=== PATIENT | female | born 1990 | race Caucasian/White ===

== ENCOUNTER 2017-03-01 02:34 | Observation (INO) | payer BC ==
[2017-03-01 03:09] VITALS: BMI 23.3
--- NOTE | 2017-03-01 03:11 | ED PDOC ---
"Arrival/HPI - General Historian: Patient - History of Present Illness Time/Duration: < week Quality: Fullness Severity Level: 6 <Ross Terrazas - Last Filed: 03/01/17 07:15> <Vitro Omalley - Last Filed: 03/01/17 08:39> - General Chief Complaint: Abdominal Pain Time Seen by Provider: 03/01/17 02:36 - History of Present Illness Narrative History of Present Illness (Text): 03/01/17 03:09 26 year old female with past medical history of PCOS presents to [facility] ED complaining of worsening abdominal pain of 4 days. Patient reports the abdominal pain started soon after her menses started on the same day. Patient states that the abdominal pain is worse than her usual menstrual cramping. It is located in the epigastric region that radiates down to her lower abdominal quadrants. Patient also reports of having 1 episode of NBNB vomiting and 1 episode of diarrhea. Patient tried taking OTC pain medications, but they did not alleviate her pain. She has decreased of appetite. Denies having headache, fever, chills, shortness of breath, chest pain, urinary or symptoms. (Ross Terrazas ) Past Medical History - Provider Review Nursing Documentation Reviewed: Yes <Ross Terrazas - Last Filed: 03/01/17 07:15> Family/Social History - Physician Review Nursing Documentation Reviewed: Yes Family/Social History: Hypertension <Ross Terrazas - Last Filed: 03/01/17 07:15> Allergies/Home Meds <Ross Terrazas - Last Filed: 03/01/17 07:15> <Vitor Omalley - Last Filed: 03/01/17 08:39> Allergies/Adverse Reactions: Allergies No Known Allergies Allergy (Verified 03/01/17 03:09) Home Medications: Home Meds Medication Instructions Recorded Confirmed No Known Home Med 03/01/17 03/01/17 Review of Systems - Physician Review All systems were reviewed & negative as marked: Yes - Review of Systems Constitutional: Normal. absent: Fatigue, Fevers Eyes: Normal. absent: Vision Changes ENT: Normal. absent: Rhinorrhea Respiratory: Normal. absent: SOB, Cough Cardiovascular: Normal. absent: Chest Pain, Syncope Gastrointestinal: Abdominal Pain, Diarrhea, Nausea, Vomiting, Appetite Changes Genitourinary Female: absent: Dysuria, Hematuria, Urine Output Changes, Vaginal Discharge Musculoskeletal: absent: Back Pain Skin: Normal. absent: Rash, Pruritis Neurological: Normal. absent: Headache, Dizziness Endocrine: Normal. absent: Diaphoresis, Polyuria Hemo/Lymphatic: Normal Psychiatric: Normal. absent: Anxiety, Depression <Ross Terrazas - Last Filed: 03/01/17 07:15> Physical Exam Vital Signs Reviewed: Yes Temperature: Afebrile Blood Pressure: Normal Pulse: Tachycardic Respiratory Rate: Normal Appearance: Positive for: Non-Toxic Pain Distress: Moderate Mental Status: Positive for: Alert and Oriented X 3 - Systems Exam Head: Present: Atraumatic, Normocephalic Pupils: Present: PERRL Extroacular Muscles: Present: EOMI Conjunctiva: Present: Normal Mouth: Present: Moist Mucous Membranes Neck: Present: Normal Range of Motion Respiratory/Chest: Present: Clear to Auscultation, Good Air Exchange. No: Respiratory Distress, Accessory Muscle Use Cardiovascular: Present: Regular Rate and Rhythm, Normal S1, S2. No: Murmurs Abdomen: Present: Tenderness (diffused abdominal tenderness, more in the epigastric and bilateral lower abdomen) Upper Extremity: Present: Normal Inspection, Neurovascularly Intact. No: Cyanosis, Edema Lower Extremity: Present: Normal Inspection, Neurovascularly Intact. No: Edema Neurological: Present: GCS=15, CN II-XII Intact, Speech Normal Skin: Present: Warm, Dry, Normal Color. No: Rashes Psychiatric: Present: Alert, Oriented x 3, Normal Insight, Normal Concentration <Ross Terrazas - Last Filed: 03/01/17 07:15> Vital Signs Temp Pulse Resp BP Pulse Ox 03/01/17 03:22 98.4 F 91 H 18 104/62 99 Medical Decision Making Re-evaluation Time: 06:30 (Patient's pain improved but feeling dizzy from pain medication) Reassessment Condition: Improving,but remains with symptoms <Ross Terrazas - Last Filed: 03/01/17 07:15> - Lab Interpretations I have reviewed the lab results: Yes - RAD Interpretation Clinic Physician Director: Radiologist <Vitor Omalley - Last Filed: 03/01/17 08:39> ED Course and Treatment: 03/01/17 03:29 -CBC, CMP -Pelvis u/s -CT abdomen -Morphine, dilaudid -UA 03/01/17 07:17 Spoken to patient and mother of imaging findings. Patient agreed to admission to hospital and OBGYN evaluation and further treatments. (Ross Trerazas) Impression: In agreement with resident note, which includes further HPI details. Patient was seen and evaluated with resident, came up with plan and treatment together. Pt, whose past medical history includes PCOS, presented for worsening abdominal pain for 4 days after her menses started. Plan: -- CT Abdomen and Pelvis -- Transvaginal US -- Labs, amylase, lipase -- Urinalysis, urine cultures -- IV fluids -- Zofran -- Pepcid -- Morphine -- Reassess and disposition Progress Notes: (Vitor Omalley) - RAD Interpretation Narrative RAD Interpretations (Text): 03/01/17 04:55 EXAM: US Pelvis Complete CLINICAL HISTORY: 26 years old, female; Pain; Pelvic pain; Additional info: H/o pcos - R/O ovarian torsion TECHNIQUE: Real-time pelvic ultrasound (complete) with image documentation. EXAM DATE/TIME: 03/01/2017 3:20 AM COMPARISON: No relevant prior studies available. FINDINGS: Uterus has a normal appearance. Endometrial stripe measures 3 mm. There is a complex 57 mm right ovarian lesion, possibly complex or hemorrhagic cyst. There is a 34 mm left ovarian cyst. No ovarian torsion. No free fluid. No adnexal mass. IMPRESSION: - Ovarian lesions as above. If clinically indicated, consider 6 week interval followup imaging to document resolution. 03/01/17 07:02 EXAM: CT Abdomen and Pelvis With Intravenous Contrast CLINICAL HISTORY: 26 years old, female; Pain; Abdominal pain; Generalized TECHNIQUE: Axial computed tomography images of the abdomen and pelvis with intravenous contrast. This CT exam was performed using one or more of the following dose reduction techniques : automated exposure control, adjustment of the mA and/or kV according to patient size, and/ or use of iterative reconstruction technique. Coronal and sagittal reformatted images were created and reviewed. CONTRAST: 96 mL of omni 350 administered intravenously. EXAM DATE/TIME: 03/01/2017 4:45 AM COMPARISON: US - PELVIS ULTRASOUND 03/01/2017 4:09:45 AM FINDINGS: Lower thorax: No acute findings. ABDOMEN: Liver: No acute findings. No mass. Gallbladder and bile ducts: No acute findings. No calcified stones. No ductal dilation. Pancreas: No acute findings. No mass. No ductal dilation. Spleen: No acute findings. No splenomegaly. Adrenals: No acute findings. No mass. Kidneys and ureters: No acute findings. No solid mass. No hydronephrosis. Stomach and bowel: No acute findings. No obstruction. No mucosal thickening. MEENU WELCH | Preliminary Radiology Report SALES REPRESENTATIVE PUBLICATIONS (QA) DISCREPANCY? If there is a discrepancy between the preliminary and final interpretation, please notify ad via [email or web address]. If you do not have access to our QA portal, call our QA team at [phone] CONFIDENTIALITY STATEMENT This report is intended only for the use of the referring physician, and only in accordance with law, If you received this in error, call [phone] Page 2 of 2 Appendix: No findings to suggest acute appendicitis. PELVIS: Bladder: No acute findings. No mass. Reproductive: There is a complex 54 x 45 mm cystic mass in the left adnexa adjacent to the dorsal margins of the right ovary. Right ovary appears polycystic. There is moderate adjacent stranding and small fluid. There is thickening of the wall of the adjacent sigmoid colon and small bowel. ABDOMEN and PELVIS: Intraperitoneal space: No acute findings. No free air. No significant fluid collection. Bones/joints: No acute fracture. No dislocation. Soft tissues: No acute findings. Vasculature: No acute findings. No abdominal aortic aneurysm. Lymph nodes: No acute findings. No enlarged lymph nodes. IMPRESSION: There is a complex 54 x 45 mm cystic mass in the left adnexa adjacent to the dorsal margins of the right ovary. Right ovary appears polycystic. There is moderate adjacent stranding and small fluid. There is thickening of the wall of the adjacent sigmoid colon and small bowel. Uncertain if this is exophytic ovarian cyst or distinct from the ovary. Cannot exclude abscess or cystic malignancy. Correlate with status. Previously described 26 mm left ovarian cyst is suspected in series 2 image 138. (Ross Terrazas) - Medication Orders Current Medication Orders: Discontinued Medications Famotidine (Pepcid) 20 mg IVP STAT STA Stop: 03/01/17 03:22 Last Admin: 03/01/17 03:37 Dose: 20 MG IVP Administration Document 03/01/17 03:37 JENNIFER (Rec: 03/01/17 03:37 JENNIFER [id number]) Charges for Administration # of IVP Administrations 1 Hydromorphone HCl (Dilaudid) 1 mg IVP STAT STA Stop: 03/01/17 05:11 Last Admin: 03/01/17 05:26 Dose: 1 MG IVP Administration Document 03/01/17 05:26 TA (Rec: 03/01/17 05:26 [id number] Charges for Administration # of IVP Administrations 1 Sodium Chloride (Sodium Chloride 0.9%) 1,000 mls @ 999 mls/hr IV .Q1H1M STA Stop: 03/01/17 04:21 Last Admin: 03/01/17 03:38 Dose: 999 MLS/HR eMAR Start Stop Document 03/01/17 03:38 JENNIFER (Rec: 03/01/17 03:38 JENNIFER [id number]) Intravenous Solution Start Date 03/01/17 Start Time 03:38 End Date 03/01/17 End time 04:38 Total Infusion Time 60 Sodium Chloride (Sodium Chloride 0.9%) 1,000 mls @ 999 mls/hr IV .Q1H1M STA Stop: 03/01/17 08:04 Last Admin: 03/01/17 07:25 Dose: 999 MLS/HR eMAR Start Stop Document 03/01/17 07:25 JOL (Rec: 03/01/17 07:26 JOL [id number] Intravenous Solution Start Date 03/01/17 Start Time 07:25 End Date 03/01/17 End time 08:25 Total Infusion Time 60 Iohexol (Omnipaque 240 (50 Ml)) Confirm Administered Dose 50 ml .ROUTE .STK-MED ONE Stop: 03/01/17 04:47 Iohexol (Omnipaque 350 100 Ml) Confirm Administered Dose 350 mg .ROUTE .STK-MED ONE Stop: 03/01/17 04:48 Morphine Sulfate (Morphine) 2 mg IVP STAT STA Stop: 03/01/17 03:22 Last Admin: 03/01/17 03:38 Dose: 2 MG MAR Pain Assessment Document 03/01/17 03:38 JENNIFER (Rec: 03/01/17 03:38 JENNIFER [id number]) Pain Reassessment Is this a pain reassessment? No IVP Administration Document 03/01/17 03:38 JENNIFER (Rec: 03/01/17 03:38 JENNIFER [id number]) Charges for Administration # of IVP Administrations 1 Ondansetron HCl (Zofran Inj) 4 mg IVP STAT STA Stop: 03/01/17 03:22 Last Admin: 03/01/17 03:37 Dose: 4 MG IVP Administration Document 03/01/17 03:37 JENNIFER (Rec: 03/01/17 03:37 JENNIFER [id number]) Charges for Administration # of IVP Administrations 1 ED OBSERVATION <Ross Terrazas - Last Filed: 03/01/17 07:15> Date of observation admission: 03/01/17 Time of observation admission: 02:58 <Vitor Omalley - Last Filed: 03/01/17 08:39> - Observation admission statement Patient is being placed in observation because:: abdominal pain and needs w/u and treatment (Vitor Omalley) - Goals of Observation Goals of observation are:: Improve symptoms and discern diagnosis and disposition. (Vitor Omalley) - Progress Note Progress Note: 03/01/17 04:30 In more pain - will give additional analgesia. 03/01/17 08:31 Patient with sono and CT results as noted - discussed with on-call physician, Dr. Bedoya, who said to discuss with CENTRAL OFFICE TECHNICIAN. Case discussed with Dr. Carlisle, who said she will accept the patient for transfer to [facility]. Patient signed consent for transfer. Dr. Maravilla in the ED aware. (Vitor Omalley) Disposition/Present on Arrival - Present on Arrival Any Indicators Present on Arrival: No - Disposition Have Diagnosis and Disposition been Completed?: Yes Disposition Time: 07:11 <Ross Terrazas - Last Filed: 03/01/17 07:15> - Present on Arrival Any Indicators Present on Arrival: No - Disposition Have Diagnosis and Disposition been Completed?: Yes Disposition Time: 08:00 Patient Plan: Transfer To ([facility]) <Vitor Omalley - Last Filed: 03/01/17 08:39> - Disposition Diagnosis: Ovarian cyst, Abdominal pain Disposition: Trans to Other Acute Care Hosp Patient Problems: Current Active Problems Problem Status Diagnosed Abdominal pain Acute Ovarian cyst Acute Condition: STABLE"
[2017-03-01] MEDS ORDERED: Sodium Chloride 0.9% 1,000 ML IV STA ×2 (03:21→07:04)
[2017-03-01] MEDS ORDERED: Morphine 2 mg/ml ISec IVP STA ×2 (03:21→04:59)
[2017-03-01 03:23] VITALS: RESP 18; TEMP 98.4; O2SAT 99
[2017-03-01 03:39] LABS: ADD MANUAL DIFF? NO
[2017-03-01 04:01] LABS: ALB/GLOB RATIO 1.2 (1.1-1.8); ALKALINE PHOSPHATASE 56 U/L (38-133); ALT/SGPT 26 U/L (7-56); AMYLASE 54 U/L (35-125); AST/SGOT 24 U/L (15-39); BILIRUBIN,TOTAL 0.8 mg/dL (0.2-1.3); BLOOD UREA NITROGEN 10 mg/dL (7-21); CALCIUM 9.5 mg/dL (8.4-10.5); CARBON DIOXIDE 27 mmol/L (21-33); CHLORIDE 101 mmol/L (95-110); GFR AFRICAN-AMERICAN > 60; GLUCOSE,RANDOM 110 mg/dL (70-110); LIPASE 50 U/L (23-300); POTASSIUM 3.7 mmol/L (3.6-5.0); SODIUM 138 mmol/L (132-148); TOTAL PROTEIN 7.7 g/dL (5.8-8.3); URINE BILIRUBIN NEGATIVE (NEGATIVE); URINE BLOOD LARGE (NEGATIVE); URINE GLUCOSE (UA) NEGATIVE (NEGATIVE); URINE KETONE NEGATIVE (NEGATIVE); URINE LEUKOCYTE ESTERASE SMALL Leu/uL (NEGATIVE); URINE PROTEIN NEGATIVE mg/dL (<30 mg/dL); URINE UROBILINOGEN 0.2 E.U./dL (<1 E.U./dL)
[2017-03-01 04:03] LABS: INR 1.06 (0.93-1.08)
[2017-03-01 04:04] LABS: URINE APPEARANCE SLIGHT-CLOUDY (CLEAR); URINE COLOR YELLOW (YELLOW)
[2017-03-01 04:13] LABS: BASO # 0.01 K/mm3 (0.0-2.0); BASO % 0.1 % (0.0-3.0); EOS % 0.2 % (1.5-5.0); GRAN # 10.42 (1.4-6.5); GRAN % 84.6 % (50.0-68.0); HEMATOCRIT 37.7 % (36.0-48.0); MEAN CELL VOLUME 81.4 fL (80.0-105.0); MEAN CORPUSCULAR HEMOGLOBIN 27.6 pg (25.0-35.0); MEAN PLATELET VOLUME 10.9 fl (7.0-11.0); MONO # 0.9 (0.1-0.6); MONO % 7.1 % (1.0-6.0); PLATELET COUNT 194 10^3/uL (120.0-450.0); WHITE BLOOD COUNT 12.3 10^3/ul (4.5-11.0)
[2017-03-01 04:14] LABS: URINE BACTERIA TRACE (NEG)
[2017-03-01] MEDS ORDERED: Iohexol 240 (50 ml) ONE (04:46)
[2017-03-01] MEDS ORDERED: Iohexol 350 MG/100 ML VIAL ONE (04:47)
[2017-03-01] MEDS ORDERED: HYDROmorphone 1 mg/ml ISec IVP STA (05:10)
--- NOTE | 2017-03-01 08:38 | CT ---
PROCEDURE: CT Abdomen and Pelvis with contrast HISTORY: abdominal pain COMPARISON: None. TECHNIQUE: Contrast dose: 96 cc Omnipaque 300 Radiation dose: Total exam DLP = 404.95 mGy-cm. This CT exam was performed using one or more of the following dose reduction techniques: Automated exposure control, adjustment of the mA and/or kV according to patient size, and/or use of iterative reconstruction technique. FINDINGS: LOWER THORAX: Unremarkable. LIVER: Unremarkable. No gross lesion or ductal dilatation. Incidental finding(s): 1 cm right hepatic cyst. GALLBLADDER AND BILE DUCTS: Unremarkable. PANCREAS: Unremarkable. No gross lesion or ductal dilatation. SPLEEN: Unremarkable. ADRENALS: Unremarkable. No mass. KIDNEYS AND URETERS: Unremarkable. No hydronephrosis. No solid mass. VASCULATURE: Unremarkable. No aortic aneurysm. BOWEL: Unremarkable. No obstruction. No gross mural thickening. APPENDIX: Normal appendix. PERITONEUM: Unremarkable. No free fluid. No free air. LYMPH NODES: Unremarkable. No enlarged lymph nodes. BLADDER: Unremarkable. REPRODUCTIVE: Left adnexal mass, cysts. This measures 4.1 x 4.9 cm BONES: No acute fracture. OTHER FINDINGS: None. IMPRESSION: Cyst left adnexa. Otherwise no significant/ acute findings. Concordant results (preliminary interpretation) provided by [facility]. Procedure Completed: 06:16. Preliminary ([facility]) Report: Dictated and Authenticated: 06:41. Final Interpretation: 08:38. March 01, 2017.
[2017-03-01 09:06] VITALS: BP 107/66; PULSE 80
--- NOTE | 2017-03-01 09:33 | US ---
HISTORY: h/o PCOS - r/o ovarian torsion COMPARISON: CT abdomen and pelvis. March 01, 2017. Summary of findings on the comparison examination: Cyst left adnexa. TECHNIQUE: Transabdominal only. Real-time technique with 2D, duplex and color Doppler FINDINGS: UTERUS: Measures 4.4 x 9.5 cm. Normal in size and appearance. No fibroid or other mass lesion seen. ENDOMETRIUM: Measures 3.2 mm in diameter. No ultrasound findings to suggest gestational sac, fluid, debris, mass or polyp or other pathologic process within the endometrium. CERVIX: No cervical abnormality identified. RIGHT OVARY: Measures 3.1 x 4.0 cm. Complex cyst/ mass 3.9 x 5.4 cm findings not appreciated on recent CT scan. Normal flow. LEFT OVARY: Measures 3.4 x 2.0 cm. No solid mass. Normal flow. Cyst 3.4 x 2 cm corresponds findings on recent CT scan. FREE FLUID: No significant free fluid noted. OTHER FINDINGS: None. IMPRESSION: Bilateral adnexal cysts, of complex cyst right ovary, simple cyst left ovary. Negative study for adnexal torsion. Concordant results (preliminary interpretation) provided by [facility]. Procedure Completed: 04:29. Preliminary ([facility]) Report: Dictated and Authenticated: Not specified. Final Interpretation: 09:31. March 01, 2017.
== END 2017-03-01 10:04 | disposition short-term general hospital (02) ==
LOC: ED 02:34 → EROBSV 02:58
PROVIDERS: ADMIT Emergency Medicine; ATTEND Emergency Medicine
DX: N83.202 Unspecified ovarian cyst, left side (principal); R10.9 Unspecified abdominal pain
CPT/HCPCS: 74177; 76856; 80053; 81001; 82150; 83690; 85025; 85610; 85730; 96361; 96374; 96375; 99284; G0378; J1170; J2270; J2405; J7040; Q9967